=== PATIENT | female | born 1940 | race Caucasian/White ===

== ENCOUNTER → 2018-02-19 | Outpatient (CLI) | payer OTHER ==
[~2018-02-19] MED LIST: 8 HOUR650 MG PO; ADULT LOW DOSE81 MG PO; ASPIRIN EC81 M1 PO; ASPIRIN325 PO; B 12; BENADRYL25 MG PO; CALCIUM; CO Q-10100 MG PO; COLACE100 MG PO; COZAAR 25 MG TA25 MG PO; CRESTOR10 MG PO; FISHOIL; KRILL OIL500 MG PO; MIRALAX17 GM PO; MYSOLINE50 MG PO; PLAVIX 75 MG TA75 M1 PO; VITAMIN B-12100 MC1 PO
[2018-02-19 10:27] LABS: CREATININE 0.7 mg/dL (0.6-1.3)
== END ==
LOC: M.CT 09:56 → M.LAB 10:30 → M.CT 11:30
PROVIDERS: Surgery
DX: I65.23 Occlusion and stenosis of bilateral carotid arteries (principal); I10 Essential (primary) hypertension; E78.00 Pure hypercholesterolemia, unspecified; Z72.89 Other problems related to lifestyle

== ENCOUNTER → 2019-04-16 | Outpatient (CLI) | payer OTHER ==
[~2019-04-16] MED LIST changes: +ASPIR 8181 M1 PO; +COQ-10100 MG PO; +CRESTOR20 MG PO; +DITROPAN XL10 M1 PO; +FISH OIL 1,2001 EAC3 PO; +MAGNESIUM500 MG PO; +NORVASC5 M1 PO; +OMEPRAZOLE 20 M20 M1 PO; +SUPER B COMPLE1 EAC2 PO; +VITAMIN B-12250 MCG PO; +VITAMIN D31000 UNIT PO
--- NOTE | 2019-04-16 17:38 | CARDNUC ---
[place] [address] CARDIAC NUCLEAR IMAGING REPORT Name: GAURAV CHAMPAGNE Room: [facility]#: [id number] Admission: 04/16/19 Attend Phys: Zia Munroe, Discharge: Date of : 36 Date of Service: 04/16/19 1737 Report #: [id number] THIS REPORT FOR: //name// APPROVED REPORT Imaging Protocol: Rest Tc-99m/Stress Tc-99m 1 day Study performed: 04/16/2019 07:45:00 Indication: Pre-Operative CV evaluation, Bilateral Carotid Stenosis. Patient Location: Out-Patient Stress Tech: Mckenzie Tinajero Stress Nurse: Eun Hankins RN NM Tech:ALEXANDRA Belle Ht: 5 ft 2 in Wt: 158 lbs BSA: 1.73 m2 BMI: 28.89 Medical History Medical History: Carotid artery disease, Former Smoker, HTN, Hyperlipidemia, Stroke/TIA, Systolic Murmur. Medications: Amlodipine, ASA 81 Mg, Rosuvastatin. Allergies: Statins, Clopidogrel, Solifenacin, Sulfa, Warfarin. Cardiac Risk Factors: Age, HTN, Hyperlipidemia, Past Smoker, Systolic Murmur, Bilateral Carotid Stenosis. Previous Cardiac Procedures: None Pretest Chest Pain Characteristics: No chest pain Exercise History: Indeterminate Physical Disabilities: Bilateral Carotid Stenosis, HX TIA, Systolic Murmur. Meds Held (24 hrs): None Resting Data Rest SPECT myocardial perfusion imaging was performed in supine position 30 minutes following the intravenous injection of 11.7 mCi of Tc-99m Sestamibi. Time of rest injection: 804 Date: 04/16/2019 The images were gated to evaluate regional wall motion and calculate left ventricular ejection fraction. Administration Route: IV Administration Site: Right AC Pharmacologic Stress Pharmacologic stress test was performed by injecting Regadenoson 0.4 [place] [address] CARDIAC NUCLEAR IMAGING REPORT Name: GAURAV CHAMPAGNE [id number] Admission: 04/16/19 Attend Phys: Zia Munroe, Discharge: Date of : 38 Date of Service: 04/16/19 1737 Report #: [id number] mg IV push over 10-15 seconds immediately followed by the intravenous injection of 36.0 mCi of Tc-99m Sestamibi. Time of stress injection: 999 Date: 04/16/2019 Administration Route: IV Administration Site: Right AC Gated Stress SPECT was performed 40 minutes after stress injection. The images were gated to evaluate regional wall motion and calculate left ventricular ejection fraction. Prone imaging was performed. Stress Test Details Stress Test: Pharmacologic stress testing performed using 0.4 mg of regadenoson per 5 mL given IV over 10 seconds. Reason for pharmacologic stress test: Systolic murmur, Bilateral Carotid Stenosis, HX TIA.. HR Max Heart Rate (APMHR): 139 bpm Resting HR: 60 bpm Target HR (85% APMHR): 118 bpm Max HR Achieved: 110 bpm % of APMHR: 79 Recovery HR: 82 bpm BP Resting BP: 154/46 mmHg Max BP: 185/52 mmHg Recovery BP: 117/73 mmHg ECG Resting ECG: Sinus Rhythm, nonspecific ST-T abnormalities Stress ECG: Sinus Rhythm, nonspecific ST-T abnormalities ST Change: None Arrhythmia: None Recovery ECG: Sinus Rhythm, nonspecific ST-T abnormalities Recovery ST Change: None Recovery Arrhythmia: None Clinical Reason for Termination: Completed protocol Stress Symptoms: None Exercise duration: 00 min 00 sec Exercise capacity: 1.00 METs The patient tolerated the infusion without significant [place] [address] CARDIAC NUCLEAR IMAGING REPORT Name: GAURAV CHAMPAGNE Room: [facility]#: [id number] Admission: 04/16/19 Attend Phys: Zia Munroe, Discharge: Date of : 38 Date of Service: 04/16/19 1737 Report #: [id number] Nurse Comments An 79 year old female presented for laying Lexiscan Stress Test r/t Pre-op clearance for Bilateral Carotid Stenosis. Patient tolerated test well. Recovery unremarkable with PO caffeine, effective. Patient was escorted by staff to Nuclear Medicine for images. Patient was stable with no complaints at that time. Stress ECG Conclusion The baseline 12-lead EKG shows sinus rhythm with nonspecific ST segment depression diffusely. EKGs obtained during and post Lexiscan infusion show sinus rhythm without significant ST segment changes when compared to baseline. There were no stress-induced arrhythmias. Study Quality Study: Good Artifact: No artifact Study Data At rest, the left ventricular ejection fraction was 78%.. Post stress, the left ventricular ejection was 70%.. TID = 1.16. Perfusion Normal left ventricular perfusion. Wall Motion Normal left ventricular wall motion. Nuclear Conclusion ECG Findings: non-diagnostic Clinical Findings: negative for ischemia Nuclear Findings: negative for ischemia Exercise Capacity: not assessed Left Ventricular Function: normal Risk Study: low Myocardial perfusion images show no defect to suggest infarct or ischemia. Left ventricular systolic function is normal on gated studies. This is a low risk study. <Conclusion> The baseline 12-lead EKG shows sinus rhythm with nonspecific ST segment depression diffusely. EKGs obtained during [place] [address] CARDIAC NUCLEAR IMAGING REPORT Name: GAURAV CHAMPAGNE Room: [facility]#: [id number] Admission: 04/16/19 Attend Phys: Zia Munroe, Discharge: Date of : 36 Date of Service: 04/16/19 1737 Report #: [id number] infusion show sinus rhythm without significant ST segment changes when compared to baseline. There were no stress-induced arrhythmias. <ELECTRONICALLY SIGNED> By: Zia Munroe MD, FACC 04/16/19 173 36 36 Zia Munroe MD, FACC /INF
== END ==
LOC: M.NUC 04-04 12:57
DX: I65.23 Occlusion and stenosis of bilateral carotid arteries (principal); I25.10 Atherosclerotic heart disease of native coronary artery without angina pectoris; I10 Essential (primary) hypertension; E78.5 Hyperlipidemia, unspecified; Z87.891 Personal history of nicotine dependence; Z86.73 Personal history of transient ischemic attack (TIA), and cerebral infarction without residual deficits

== ENCOUNTER 2019-05-06 07:01 | Inpatient (IN) | payer OTHER ==
[~2019-05-06] VITALS: Ht 160 cm; Wt 71.7 kg
[2019-05-06] VITALS (19 sets, daily range): BP systolic 64–137; BP diastolic 38–97
--- NOTE | ~2019-05-06 | OP ---
[address] [address] OPERATIVE REPORT Name: GAURAV CHAMPAGNE Room: [address] IN M.R.#: [id number] Admission: 05/06/19 Attend Phys: Uli Byrd MD Discharge: Date of : 38 Report #: [id number] THIS REPORT FOR: //name// CC: Vidhya Bryd DATE OF SERVICE: 05/06/2019 PREOPERATIVE DIAGNOSIS: Severe left internal carotid artery stenosis. POSTOPERATIVE DIAGNOSIS: Severe left internal carotid artery stenosis. PROCEDURES: 1. Left carotid endarterectomy with patch angioplasty. 2. Intraoperative ultrasound with interpretation. FINDINGS ON ULTRASOUND: 1. Normal waveform velocity identified within the internal and common carotid arteries. 2. Patent flow identified in the external carotid artery on color flow imaging. 3. No flaps or defects identified on hopkins-scale imaging. SURGEON: Uli Byrd MD TELE TECH: Sherrie Méndez, surgical aide. COMPLICATIONS: None. ESTIMATED BLOOD LOSS: 200 mL. SPECIMENS: Includes plaque. ANESTHESIA: General. INDICATIONS FOR PROCEDURE: The patient is a very pleasant 79-year-old white female, who has severe left internal carotid artery stenosis. She also has innominate artery stenosis as well, but this is asymptomatic. We plan to proceed with left carotid endarterectomy today. We will shunt since she has stenosis on her inflow to her right carotid artery as well. Informed consent was obtained from the patient with risks including but not limited to bleeding, infection, need for further surgery, pain, , heart attack, stroke, cranial nerve injury. The patient understood these risks and was agreeable to proceed. DESCRIPTION OF PROCEDURE: The patient was taken to the operating room and placed in supine position. After adequate general anesthesia was initiated, timeout was performed. The patient's left neck [place] [address] OPERATIVE REPORT Name: MAHIGAURAV Room: [address] IN [facility].#: [id number] Admission: 05/06/19 Attend Phys: Uli Byrd MD Discharge: Date of : 38 Report #: [id number] draped in usual sterile fashion. The patient received appropriate preoperative antibiotics. The patient was systemically heparinized throughout the critical portion of procedure. I created a transverse incision in the patient's left neck. Sharp and blunt dissections were carried down along the anterior border of sternocleidomastoid muscle. I divided the facial vein. I entered the carotid sheath. Carotid bifurcation was very high. Her plaque extended almost all the way up to the skull base. I carefully dissected out the carotid artery, avoiding the cranial nerves. I controlled the common carotid artery as well as the branches of the internal and external carotid artery. I created a longitudinal arteriotomy from the common carotid artery onto the internal carotid artery. I placed a 12 shunt. There was quite a bit of backbleeding around the shunt. For this reason, I exchanged out for 14 shunt. There was still some backbleeding around the shunt. I placed a shunt clamp. For this reason, now I controlled the flow. I performed endarterectomy in standard fashion using a Kake elevator and a pair of pickups. I performed eversion endarterectomy of the external carotid artery. I got a feathered edge leading into the internal carotid artery. I used a bovine pericardial patch and a running 6-0 Prolene suture to close my arteriotomy. Upon completion of the repair, there was adequate hemostasis and excellent blood flow into the internal carotid artery. I performed intraoperative ultrasound with findings noted above. I irrigated with antibiotic saline. I controlled bleeding as needed with electrocautery, ties, clips and [place]. We closed the wound in multiple layers using 2-0 Vicryl, 3-0 Vicryl and Monocryl for the skin. Incision was dressed with Dermabond. The patient tolerated the procedure well and was taken alert and awake to recovery room in good condition. All needle and instrument counts were correct at the end of the case. By: 1350 [id number] Byrd MD /hilton
[2019-05-06 11:26] LABS: ABSOLUTE BASOPHILS 0.1 thou/uL (0.0-0.2); ABSOLUTE EOSINOPHILS 0.4 thou/uL (0.0-0.7); ABSOLUTE LYMPHOCYTES 1.3 thou/uL (0.8-5.3); ABSOLUTE MONOCYTES 0.7 thou/uL (0.0-1.2); ABSOLUTE NEUTROPHILS 5.7 thou/uL (1.6-8.1); BASOPHILS 1.2 %; EOSINOPHILS 5.3 %; HEMATOCRIT 36.9 % (37.0-47.0); HEMOGLOBIN 12.7 gm/dL (12.0-15.0); LYMPHOCYTES 16.1 %; MCH 30.5 pg (26.0-34.0); MCHC 34.3 g/dL (28.0-37.0); MONOCYTES 8.2 %; NUCLEATED RBCS 0 /100WBC; PLATELET COUNT* 382 thou/uL (150-400); POLYS 69.2 %; RBC 4.15 mil/uL (4.20-5.00); RDW-CV 13.1 % (10.5-14.5); WBC 8.2 thou/uL (4.0-11.0)
[2019-05-06 11:32] LABS: CALCIUM 8.8 mg/dL (8.5-10.1); CREATININE 0.8 mg/dL (0.6-1.3); POTASSIUM 4.2 mmol/L (3.5-5.1)
[2019-05-07] VITALS (14 sets, daily range): BP systolic 90–138; BP diastolic 43–61
[2019-05-07 04:31] LABS: HEMATOCRIT 30.4 % (37.0-47.0); MCH 30.1 pg (26.0-34.0); MCHC 33.8 g/dL (28.0-37.0); MCV 89.2 fL (80.0-100.0); MPV 6.9 fl. (7.2-11.1); RBC 3.41 mil/uL (4.20-5.00); WBC 19.2 thou/uL (4.0-11.0)
[2019-05-07 04:43] LABS: CALCIUM 7.7 mg/dL (8.5-10.1); CREATININE 0.7 mg/dL (0.6-1.3); POTASSIUM 4.7 mmol/L (3.5-5.1)
[2019-05-07 04:51] LABS: HEMOGLOBIN 10.3 gm/dL (12.0-15.0)
[2019-05-07 10:17] LABS: URINE BILIRUBIN NEGATIVE (Negative); URINE BLOOD NEGATIVE (Negative); URINE CLARITY CLEAR; URINE COLOR YELLOW; URINE GLUCOSE-RANDOM NEGATIVE (Negative); URINE KETONES NEGATIVE (Negative); URINE LEUKOCYTES-REFLEX 1+ (Negative); URINE NITRITE-REFLEX POSITIVE (Negative); URINE PROTEIN NEGATIVE (Negative); URINE SPECIFIC GRAVITY 1.015 (1.005-1.030); URINE UROBILINOGEN 0.2 E.U./dl (0.2-1.0)
[2019-05-07 10:24] LABS: SQUAMOUS 0-3 Few /LPF (0-3); URINE RBC 0-2 Rare /HPF (0-2); URINE WBC-REFLEX 6-15 Few /HPF (0-5)
[2019-05-07 10:25] LABS: BACTERIA-REFLEX 1-9 Few /HPF (None Seen); CASTS None Seen /LPF (None Seen); CRYSTALS None Seen /LPF (None Seen); MUCUS None Seen strn/LPF (None Seen)
[2019-05-07] MEDS ORDERED: MACROBID 100 M100 MG PO (12:14)
[2019-05-07] MEDS ORDERED: NORCO 5-325 TA1 EAC1 PO (12:17)
--- NOTE | 2019-05-08 17:06 | PATH ---
[facility] [address] [place] [address] PATHOLOGY RPT PROCEDURE Name: GROVER BEAN Room: [address] IN M.R.#: [id number] Admission: 05/06/19 Date of : 38 Discharge: 05/07/19 Report #: [id number] Path Case #: [id number] LCA Accession Number: [id number] . 01 Material submitted: . carotid body - LEFT CAROTID PLAQUE. Modifiers: left . 01 Clinical history: . Left carotid stenosis . 02 Diagnosis: Left carotid plaque: - Fibrointimal atherosclerotic plaque with prominent calcification. (SAM:gigi; 05/08/2019) QMS 05/08/2019 1243 Local . 02 Electronically signed: . Stephen Little MD, Pathologist NPI- [id number] . 01 Gross description: . The specimen is received in formalin, labeled "Grover Bean, left carotid plaque". Received are two segments of moderately calcified plaque measuring 2.1 x 1.8 x 0.5 cm in aggregate dimensions. The specimen is submitted representatively in cassette A1, following light decalcification. (CAA; 05/07/2019) QAC/QA 05/07/2019 0920 Local . 02 Pathologist provided ICD-10: I65.22 . 02 CPT . 553371, 475156 Specimen Comment: A courtesy copy of this report has been sent to [phone] Specimen Comment: [id number] Specimen Comment: Report sent to / DR BOSE Performed at: [address], [place], [place] [id number] MD Juanito Kramer MD Phone: [phone] Performed at: 02 [facility] [address] [place], [place], [place] [id number] MD Stephen Little MD Phone: [phone]
== END 2019-05-07 13:00 | disposition home or self-care (01) | DRG 38 ==
LOC: M.PRE 07:01 → M.TBA 10:01 → M.ICU 10:01 → M.PRE 10:27 → M.ICU 15:11 → M.PRE 17:03 → M.ICU 05-07 13:00
PROVIDERS: Physician Assistant Surgical; ADMIT Surgery Vascular Surgery
PROC: 03UL0KZ Supplement Left Internal Carotid Artery with Nonautologous Tissue Substitute, Open Approach (ICD-10-PCS; principal; 2019-05-06)
PROC: 03CL0ZZ Extirpation of Matter from Left Internal Carotid Artery, Open Approach (ICD-10-PCS; principal; 2019-05-06)
DX: I65.22 Occlusion and stenosis of left carotid artery (principal); J98.11 Atelectasis; E78.00 Pure hypercholesterolemia, unspecified; I10 Essential (primary) hypertension; K21.9 Gastro-esophageal reflux disease without esophagitis; M81.0 Age-related osteoporosis without current pathological fracture; I73.9 Peripheral vascular disease, unspecified; J44.9 Chronic obstructive pulmonary disease, unspecified; D72.829 Elevated white blood cell count, unspecified; Z86.73 Personal history of transient ischemic attack (TIA), and cerebral infarction without residual deficits; Z86.010 Personal history of colon polyps; Z87.891 Personal history of nicotine dependence; Z79.82 Long term (current) use of aspirin; Z88.2 Allergy status to sulfonamides; Z88.8 Allergy status to other drugs, medicaments and biological substances; Z79.899 Other long term (current) drug therapy

== ENCOUNTER 2020-04-21 09:39 | Inpatient (IN) | payer OTHER ==
[~2020-04-21] VITALS: Ht 157.5 cm; Wt 66.5 kg
[~2020-04-21 09:39] MED LIST changes: +MACROBID 100 M100 MG PO; +NORCO 5-325 TA1 EAC1 PO
[2020-04-21 09:46] VITALS: BP 92/59
[2020-04-21 10:19] LABS: ABSOLUTE BASOPHILS 0.1 thou/uL (0.0-0.2); ABSOLUTE EOSINOPHILS 0.6 thou/uL (0.0-0.7); ABSOLUTE LYMPHOCYTES 1.2 thou/uL (0.8-5.3); ABSOLUTE MONOCYTES 1.6 thou/uL (0.0-1.2); BASOPHILS 1.1 %; EOSINOPHILS 4.6 %; HEMOGLOBIN 12.5 gm/dL (12.0-15.0); LYMPHOCYTES 9.8 %; MCH 29.2 pg (26.0-34.0); MCV 88.6 fL (80.0-100.0); MONOCYTES 12.6 %; MPV 7.3 fl. (7.2-11.1); NUCLEATED RBCS 0 /100WBC; PLATELET COUNT* 439 thou/uL (150-400); POLYS 71.9 %; RBC 4.29 mil/uL (4.20-5.00); RDW-CV 13.5 % (10.5-14.5); WBC 12.6 thou/uL (4.0-11.0)
[2020-04-21 10:44] LABS: APTT 21.4 Seconds (25.0-31.3); INR 1.1; PROTIME 11.4 Seconds (9.20-11.50)
[2020-04-21 10:51] LABS: ALBUMIN 2.6 g/dL (3.4-5.0); CREATININE 1.6 mg/dL (0.6-1.3); POTASSIUM 3.6 mmol/L (3.5-5.1); TOTAL BILIRUBIN 0.4 mg/dL (<0.1-1.0); TOTAL PROTEIN 7.2 g/dL (6.4-8.2)
[2020-04-21 11:07] LABS: CALCIUM 14.8 mg/dL (8.5-10.1)
[2020-04-21 12:44] LABS: CREATININE 1.6 mg/dL (0.6-1.3); PHOSPHORUS* 4.1 mg/dL (2.5-4.9)
[2020-04-21 12:48] LABS: CALCIUM 15.7 mg/dL (8.5-10.1)
[2020-04-21 14:39] LABS: URINE BILIRUBIN NEGATIVE (Negative); URINE BLOOD TRACE (Negative); URINE CLARITY CLEAR; URINE COLOR YELLOW; URINE GLUCOSE-RANDOM NEGATIVE (Negative); URINE KETONES NEGATIVE (Negative); URINE LEUKOCYTES-REFLEX 1+ (Negative); URINE NITRITE-REFLEX NEGATIVE (Negative); URINE PROTEIN NEGATIVE (Negative); URINE SPECIFIC GRAVITY 1.015 (1.005-1.030); URINE UROBILINOGEN 0.2 E.U./dl (0.2-1.0)
[2020-04-21 14:47] LABS: URINE POTASSIUM-RANDOM 26.8 mmol/L
[2020-04-21 14:49] LABS: CASTS None Seen /LPF (None Seen); CRYSTALS None Seen /LPF (None Seen); SQUAMOUS 0-3 Few /LPF (0-3); URINE RBC 0-2 Rare /HPF (0-2); URINE WBC-REFLEX 6-15 Few /HPF (0-5)
[2020-04-21 15:39] VITALS: BP 111/48
--- NOTE | 2020-04-21 16:11 | EKG ---
[place] [address] ELECTROCARDIOGRAM REPORT Name: CHAMPAGNEGAURAV Room: [place] [address] ADM IN .R.#: [id number] Admission: 04/21/20 Attend Phys: Jose F Li, Discharge: Date of : 38 Date of Service: 04/21/20 1006 Report #: [id number] THIS REPORT FOR: //name// [facility] ED Test Date: 2020-04-21 Test Time: 10:06:03 Pat Name: AGURAV CHAMPAGNE Department: Room: [facility] Gender: F Clinical Trial Specialist: TDS : 1940 Requested By: Dmitriy Pearl Order Number: [id number] MD: Jerad Hicks Measurements Intervals [place] Rate: 87 P: -3 CT: 167 QRS: -19 QRSD: 83 T: 26 QT: 358 QTc: 431 Interpretive Statements Sinus rhythm LVH by voltage Inferior infarct, old possible Anterior Q waves, possibly due to LVH or old anteroseptal scar Compared to ECG 08/02/2013 13:17:58 Left ventricular hypertrophy now present Q waves now present Myocardial infarct finding still present Electronically Signed On 04-21-2020 16:11:19 PRINCIPAL LIBRARIAN by Jerad Hicks [email or web address] <ELECTRONICALLY SIGNED> By: Jerad Hicks MD, [facility] 04/21/20 1611 05 05 Jerad Hicks MD, [facility] /EPI
--- NOTE | 2020-04-21 16:13 | EKG ---
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: CCD : 1940 Requested By: Dmitriy Pearl Order Number: [id number] MD: Jerad Hicks Measurements Intervals [place] Rate: 140 P: 202 [place]: 83 QRS: -11 QRSD: 80 T: 21 QT: 325 QTc: 496 Interpretive Statements Sinus rhythm with a burst of supraventricular tachycardia Inferior infarct, old possible Compared to ECG 04/21/2020 10:06:03 Run of SVT is noted Left ventricular hypertrophy no longer present Electronically Signed On 04-21-2020 16:12:58 TRANSITIONAL NURSE by Jerad Hicks [email or web address] <ELECTRONICALLY SIGNED> By: Jerad Hicks MD, FACC 04/21/20 1612 1141 1141 Jerad Hicks MD, FACC /EPI
[2020-04-21 18:56] VITALS: BP 110/75
[2020-04-21 20:00] VITALS: BP 108/70
[2020-04-22 00:34] VITALS: BP 121/50
[2020-04-22 04:22] VITALS: BP 122/57
[2020-04-22 05:44] LABS: CREATININE 1.5 mg/dL (0.6-1.3); MAGNESIUM 1.7 mg/dL (1.8-2.4); POTASSIUM 3.3 mmol/L (3.5-5.1)
[2020-04-22 05:45] LABS: CALCIUM 11.8 mg/dL (8.5-10.1)
[2020-04-22 07:08] LABS: HEPATITIS B SURFACE AG Negative (Negative)
[2020-04-22 08:00] VITALS: BP 98/71
[2020-04-22 12:00] VITALS: BP 116/66
[2020-04-22 17:27] VITALS: BP 106/68
[2020-04-22 20:56] VITALS: BP 123/60
[2020-04-23] VITALS: BP 124/72
[2020-04-23 04:00] VITALS: BP 106/62
[2020-04-23 04:51] LABS: ALBUMIN 2.2 g/dL (3.4-5.0); CREATININE 1.6 mg/dL (0.6-1.3); MAGNESIUM 1.8 mg/dL (1.8-2.4); POTASSIUM 3.7 mmol/L (3.5-5.1); TOTAL BILIRUBIN 0.4 mg/dL (<0.1-1.0); TOTAL PROTEIN 6.3 g/dL (6.4-8.2)
[2020-04-23 05:37] LABS: CALCIUM 12.9 mg/dL (8.5-10.1)
[2020-04-23 08:00] VITALS: BP 110/71
[2020-04-23 11:53] VITALS: BP 101/56
[2020-04-23 13:32] LABS: GLOBULIN TOTAL 3.3 g/dL (2.2-3.9); M-SPIKE Not Observed g/dL (Not Observed)
[2020-04-23 13:34] LABS: ALBUMIN 2.3 g/dL (3.4-5.0); CREATININE 1.4 mg/dL (0.6-1.3); PHOSPHORUS* 2.8 mg/dL (2.5-4.9); POTASSIUM 3.5 mmol/L (3.5-5.1)
[2020-04-23 15:22] LABS: CREATININE 1.6 mg/dL (0.6-1.3)
[2020-04-23 15:26] LABS: CALCIUM 12.4 mg/dL (8.5-10.1)
[2020-04-23 16:27] VITALS: BP 90/50
[2020-04-23 20:10] VITALS: BP 129/75
[2020-04-24] VITALS (7 sets, daily range): BP systolic 94–129; BP diastolic 50–69
[2020-04-24 04:40] LABS: ABSOLUTE BASOPHILS 0.1 thou/uL (0.0-0.2); ABSOLUTE EOSINOPHILS 0.8 thou/uL (0.0-0.7); ABSOLUTE LYMPHOCYTES 1.2 thou/uL (0.8-5.3); ABSOLUTE MONOCYTES 1.4 thou/uL (0.0-1.2); ABSOLUTE NEUTROPHILS 9.1 thou/uL (1.6-8.1); BASOPHILS 1.2 %; EOSINOPHILS 6.5 %; HEMATOCRIT 34.2 % (37.0-47.0); HEMOGLOBIN 11.4 gm/dL (12.0-15.0); LYMPHOCYTES 9.5 %; MCH 29.3 pg (26.0-34.0); MCHC 33.2 g/dL (28.0-37.0); MCV 88.2 fL (80.0-100.0); MPV 7.2 fl. (7.2-11.1); NUCLEATED RBCS 0 /100WBC; PLATELET COUNT* 413 thou/uL (150-400); POLYS 71.8 %; RBC 3.87 mil/uL (4.20-5.00); RDW-CV 13.7 % (10.5-14.5); WBC 12.6 thou/uL (4.0-11.0)
[2020-04-24 05:00] LABS: ALBUMIN 2.3 g/dL (3.4-5.0); CALCIUM 11.7 mg/dL (8.5-10.1); CREATININE 1.6 mg/dL (0.6-1.3); MAGNESIUM 1.8 mg/dL (1.8-2.4); POTASSIUM 3.6 mmol/L (3.5-5.1); TOTAL BILIRUBIN 0.4 mg/dL (<0.1-1.0); TOTAL PROTEIN 6.1 g/dL (6.4-8.2)
--- NOTE | 2020-04-24 05:15 | CON ---
[address] [address] CONSULTATION Name: GAURAV CHAMPAGNE Room: [address] IN M.R.#: [id number] Admission: 04/21/20 Attend Phys: Jose F Li MD Discharge: Date of : 38 Report #: [id number] THIS REPORT FOR: //name// cc: Vidhya Mejía MD, Lin W. MD ~ DATE OF SERVICE: 04/23/2020 NEPHROLOGY CONSULTATION CONSULTING PHYSICIAN: Dr. Li. REASON FOR NEPHROLOGY CONSULTATION: Hypercalcemia and acute kidney injury. REASON FOR ADMISSION: Confusion. HISTORY OF PRESENT ILLNESS: This is an 80-year-old female who was admitted with weakness and a fall at home and she was found to be in SVT when she was in the ER. She also had a recent history of COVID infection in February. Her calcium was found to be 14.8 with a creatinine of 1.6. The creatinine was 0.7 in 04/2019. She does not have any history of hypercalcemia in the past as well. The patient states that she was taking Tums, but just to 1 tablet a day because of increased GERD. She was also taking NSAIDs, Aleve PM every night. There is no history of any kidney stones. Her calcium level did come down slightly, but then went up again today. Her creatinine has been running 1.5-1.6 here in the hospital. She is just very weak. Her blood pressure was also low when she came in. She has been nonoliguric. REVIEW OF SYSTEMS: As mentioned in history of present illness, otherwise 10-point review of systems are negative. ALLERGIES: SIMVASTATIN, SULFA, WARFARIN, ATORVASTATIN, CLOPIDOGREL, AND CERIVASTATIN. PAST MEDICAL AND SURGICAL HISTORY: Includes dyslipidemia, hypertension, bilateral carotid artery stenosis, subclavian arterial stenosis, TIA, cerebral infarcts, cardiac murmur, acid reflux, colon polyps, essential tremor, osteoporosis, retinal hemorrhage, urinary frequency and tonsillectomy. FAMILY HISTORY: Reviewed and noncontributory in this 80-year-old female. SOCIAL HISTORY: She lives at home. Former smoker, does not use alcohol, does not use recreational drugs. HOME MEDICATIONS: Include rosuvastatin, ubidecarenone, amlodipine, vitamin B complex, fish oil, cholecalciferol, cyanocobalamin, hydrocodone, acetaminophen, aspirin, magnesium oxide, omeprazole, oxybutynin, [place] [address] CONSULTATION Name: GAURAV CHAMPAGNE Room: [address]#: [id number] Admission: 04/21/20 Attend Phys: Jose F Li MD Discharge: Date of : 38 Report #: [id number] PHYSICAL EXAMINATION: VITAL SIGNS: Blood pressure is 118/69, temperature 36.6, pulse rate is 101, respiratory rate is 18, pulse ox 92% on 2 liters of oxygen via nasal cannula. GENERAL: She is awake, alert, oriented x 3. HEAD AND EYES: Atraumatic, normocephalic. EARS, NOSE, AND THROAT: Normal ears and nose. Mucous membranes are dry. CHEST: Bilaterally clear to auscultation. No crackles or wheezing. CARDIOVASCULAR: S1, S2 normal. No murmurs. ABDOMEN: Soft, nondistended, nontender. Bowel sounds are present. LOWER EXTREMITIES: There is no lower extremity edema. NEUROLOGICAL FUNCTION: Grossly internal. PSYCHIATRIC: Mood and affect seems to be normal. LABORATORY DATA: Sodium 143, potassium 3.7, creatinine was 1.6 and calcium was 12.9, which is up from 11.8, which was yesterday and a calcium was 14.8 when she first came in, 25-hydroxy vitamin D was 56. PTH was 4 and other labs are reviewed. IMAGING: Renal ultrasound, abdominal ultrasound, head CT and chest x-ray were reviewed. ASSESSMENT: 1. Acute kidney injury in the setting of hypercalcemia, NSAID use, intravascular volume depletion, baseline creatinine around 0.7 in 04/2019 and creatinine has been running 1.5-1.6 over here in the hospital. UA showed just trace blood, but no significant rbc's and 6-15 wbc's per high power field. Renal ultrasound was unremarkable. 2. Hypercalcemia, etiology is unclear. It is not PTH driven because PTH is 4, 25-hydroxy vitamin D is 56, serum protein electrophoresis is normal. She was taking calcium supplements at home, but not a whole lot. 3. Hypotension, which also contributed to acute kidney injury, which is better now. 4. Volume depletion. 5. Supraventricular tachycardia. The patient was treated with Cardizem initially and now on p.o. amiodarone as per Cardiology. 6. Transaminitis, which is improving. 7. Normal CPK. 8. Peripheral vascular disease as per primary team. 9. Gastroesophageal reflux disease. PLAN: 1. We will change her IV fluids to half normal saline at 150 mL an hour and we will give a dose of Zometa 4 mg. 2. I tried to order PTH related peptide, was unable to do so, please try to see if it can be ordered, one 25-hydroxy vitamin D and serum free light chain ratio [address] [place] [address] CONSULTATION Name: GAURAV CHAMPAGNE Room: [address] IN .#: [id number] Admission: 04/21/20 Attend Phys: Jose F Li MD Discharge: Date of : 38 Report #: [id number] also ordered. 3. Also, check a bladder scan to make sure she is not retaining any urine. 4. Hypercalcemia can be associated with malignancy in her case because it is not PTH driven and it does not look like she was taking Tums or calcium supplements. I thought that she was taking some vitamin D at home. 5. I will recommend Hematology/Oncology consultation and discussed with the patient's nurse and discussed with the patient as well and we will continue to follow with you. Creatinine so far is stable. Thank you for this consultation. <ELECTRONICALLY SIGNED> By: Hellen Freedman MD 04/24/20 0515 0851 [id number] Freedman MD /nt
--- NOTE | 2020-04-24 13:59 | 2DMMODE ---
[place] [address] 2 D/M-MODE ECHOCARDIOGRAM Name: GAURAV CHAMPAGNE Room: [address] IN .R.#: [id number] Admission: 04/21/20 Attend Phys: Jose F Li, Discharge: Date of : 38 Date of Service: 04/24/20 1359 Report #: [id number] THIS REPORT FOR: cc: Vidhya Mejía MD, Lin W. MD Holkins, John M. MD [facility] ~ APPROVED REPORT Study performed: 04/24/2020 11:07:48 EXAM: Comprehensive 2D, Doppler, and color-flow Echocardiogram Patient Location: In-Patient Room #: [facility] Status: routine BSA: 1.72 HR: 73 bpm BP: 100/50 mmHg Rhythm: NSR Other Information Study Quality: Good Indications Tachycardia 2D Dimensions IVSd: 8.96 (7-11mm) LVOT Diam: 19.43 (18-24mm) LVDd: 41.99 mm PWd: 8.42 (7-11mm) Ascending Ao: 31.46 (22-36mm) LVDs: 26.80 (25-40mm) Aortic Root: 24.88 mm Volumes Left Atrial Volume (Systole) LA ESV Index: 22.80 mL/m2 Aortic Valve AoV Peak Pelon.: 1.55 m/s AO Peak Gr.: 9.64 mmHg LVOT Max P.25 mmHg AO Mean Gr.: 5.23 mmHg LVOT Mean P.62 mmHg LVOT Max V: 0.90 m/s AO V2 VTI: 34.28 cm LVOT Mean V: 0.59 m/s KINA (VTI): 1.85 cm2 LVOT V1 VTI: 21.35 [place] [address] 2 D/M-MODE ECHOCARDIOGRAM Name: GAURAV CHAMPAGNE Room: [address] IN M.R.#: [id number] Admission: 04/21/20 Attend Phys: Jose F Li, Discharge: Date of : 38 Date of Service: 04/24/20 1359 Report #: [id number] Mitral Valve E/A Ratio: 0.76 MV Decel. Time: 190.62 ms MV E Max Pelon.: 0.91 m/s MV PHT: 55.28 ms MVA (PHT): 3.98 cm2 TDI E/Lateral E': 11.38 E/Medial E': 13.00 Medial E' Pelon.: 0.07 m/s Lateral E' Pelon.: 0.08 m/s Pulmonary Valve PV Peak Pelon.: 0.88 m/s PV Peak Gr.: 3.08 mmHg Tricuspid Valve RAP Estimate: 5.00 mmHg TR Peak Gr.: 29.54 mmHg RVSP: 34.00 mmHg PA Pressure: 34.00 mmHg Left Ventricle The left ventricle is normal size. There is normal LV segmental wall motion. There is normal left ventricular wall thickness. Left ventricular systolic function is normal. The left ventricular ejection fraction is within the normal range. LVEF is 55-60%. Grade I - abnormal relaxation pattern. Right Ventricle The right ventricle is normal size. The right ventricular systolic function is normal. Atria The left atrium size is normal. The right atrium size is normal. Aortic Valve Mild aortic valve sclerosis. No aortic regurgitation is present. No hemodynamically significant valvular aortic stenosis. Mitral Valve Mild mitral annular calcification. Mild mitral regurgitation. No evidence of mitral valve stenosis. Tricuspid Valve The tricuspid valve is normal in structure. Mild tricuspid regurgitation. [place] [address] 2 D/M-MODE ECHOCARDIOGRAM Name: GAURAV CHAMPAGNE Room: [address] IN [facility]#: [id number] Admission: 04/21/20 Attend Phys: Jose F Li, Discharge: Date of : 36 Date of Service: 04/24/20 1359 Report #: [id number] Pulmonic Valve The pulmonary valve is normal in structure. There is no pulmonic valvular regurgitation. Great Vessels The aortic root is normal in size. IVC is normal in size and collapses >50% with inspiration. Pericardium There is no pericardial effusion. <Conclusion> The left ventricle is normal size. There is normal left ventricular wall thickness. Left ventricular systolic function is normal. The left ventricular ejection fraction is within the normal range. LVEF is 55-60%. Grade I - abnormal relaxation pattern. The right ventricle is normal size. The left atrium size is normal. Mild aortic valve sclerosis. No aortic regurgitation is present. No hemodynamically significant valvular aortic stenosis. Mild mitral annular calcification. Mild mitral regurgitation. No evidence of mitral valve stenosis. The tricuspid valve is normal in structure. Mild tricuspid regurgitation. Mild pulmonary hypertension. IVC is normal in size and collapses >50% with inspiration. There is no pericardial effusion. There is normal LV segmental wall motion. <ELECTRONICALLY SIGNED> By: Jerad Hicks MD, FACC 04/24/20 1359 1359 1359 Jerad Hicks MD, FACC /INF
[2020-04-25] VITALS: BP 101/58; BP 88/49
[2020-04-25 04:00] VITALS: BP 93/44
[2020-04-25 04:26] LABS: ABSOLUTE BASOPHILS 0.1 thou/uL (0.0-0.2); ABSOLUTE EOSINOPHILS 0.7 thou/uL (0.0-0.7); ABSOLUTE LYMPHOCYTES 0.9 thou/uL (0.8-5.3); ABSOLUTE MONOCYTES 1.3 thou/uL (0.0-1.2); BASOPHILS 1.1 %; EOSINOPHILS 6.4 %; HEMATOCRIT 32.9 % (37.0-47.0); HEMOGLOBIN 10.9 gm/dL (12.0-15.0); LYMPHOCYTES 8.5 %; MCH 29.2 pg (26.0-34.0); MCHC 33.3 g/dL (28.0-37.0); MCV 87.7 fL (80.0-100.0); MONOCYTES 11.5 %; MPV 7.2 fl. (7.2-11.1); NUCLEATED RBCS 0 /100WBC; PLATELET COUNT* 398 thou/uL (150-400); POLYS 72.5 %; RBC 3.75 mil/uL (4.20-5.00); RDW-CV 13.7 % (10.5-14.5)
[2020-04-25 04:51] LABS: CALCIUM 10.5 mg/dL (8.5-10.1); CREATININE 1.4 mg/dL (0.6-1.3); POTASSIUM 3.1 mmol/L (3.5-5.1)
[2020-04-25 08:00] VITALS: BP 97/53
[2020-04-25] MEDS ORDERED: PACERONE 200 M200 M1 PO (08:20)
[2020-04-25 12:00] VITALS: BP 119/70
[2020-04-25 16:00] VITALS: BP 111/58
[2020-04-25 20:00] VITALS: BP 120/45
[2020-04-26 00:09] VITALS: BP 100/85
[2020-04-26 04:00] VITALS: BP 103/77
[2020-04-26 08:00] VITALS: BP 127/57
[2020-04-26 09:51] LABS: CALCIUM 10.1 mg/dL (8.5-10.1); CREATININE 1.4 mg/dL (0.6-1.3); POTASSIUM 3.3 mmol/L (3.5-5.1)
[2020-04-26 12:00] VITALS: BP 97/49
[2020-04-26 16:00] VITALS: BP 95/55
[2020-04-26 20:00] VITALS: BP 110/47
[2020-04-27] VITALS: BP 99/50
[2020-04-27 04:00] VITALS: BP 105/54
[2020-04-27 08:00] VITALS: BP 118/58
--- NOTE | 2020-04-27 09:01 | CON ---
[address] [address] CONSULTATION Name: GAURAV CHAMPAGNE Room: [address] ADM IN M.R.#: [id number] Admission: 04/21/20 Attend Phys: Jose F Li MD Discharge: Date of : 36 Report #: [id number] THIS REPORT FOR: //name// cc: Vidhya Mejía MD, Lin W. MD ~ DATE OF SERVICE: 04/21/2020 CARDIOLOGY CONSULT INDICATION: SVT. HISTORY OF PRESENT ILLNESS: This patient is a very pleasant 80-year-old white female with prior history of CVA/TIA and carotid disease, who was admitted to the hospital with generalized weakness and confusion. She had a fall at home where she states that she fell off of the toilet seat. She denies syncope. In the Emergency Room, she was found to have hypoglycemia and evidence of dehydration with an elevated creatinine. She also had hypercalcemia and elevated liver function studies. In the Emergency Room, she was noted to have intermittent supraventricular tachycardia on the monitor. The only symptom that she noted was fatigue. She denied any significant shortness of breath or chest pain. PAST MEDICAL HISTORY: 1. History of TIA/CVA. 2. Hyperlipidemia. 3. Hypertension. 4. History of left carotid endarterectomy. 5. Subclavian artery stenosis. 6. GERD. 7. Essential tremor. 8. Osteoporosis. 9. History of retinal hemorrhage. 10. Remote history of tonsillectomy. FAMILY HISTORY: Noncontributory. SOCIAL HISTORY: The patient is a former smoker. She quit remotely. She does not drink alcohol. CURRENT MEDICATIONS: Crestor 20 mg at bedtime, CoQ10 of 100 mg at bedtime, amlodipine 5 mg at bedtime, multivitamin 1 tablet daily, fish oil 1200 mg daily, vitamin D supplement 1000 units daily, vitamin B12 of 250 mcg daily, Somers 5/325 q. 6 hours p.r.n., aspirin 81 mg at bedtime, magnesium oxide 500 mg daily, omeprazole 20 mg daily, Ditropan XL 10 mg daily, primidone 50 mg daily. ALLERGIES: SIMVASTATIN, SULFAS, WARFARIN, ATORVASTATIN, CLOPIDOGREL, [place] [id number] CONSULTATION Name: GAURAV CHAMPAGNE Room: [address] IN [facility]#: [id number] Admission: 04/21/20 Attend Phys: Jose F Li MD Discharge: Date of : 36 Report #: [id number] CERIVASTATIN. REVIEW OF SYSTEMS: A 14-point review of systems as per HPI, otherwise unremarkable. PHYSICAL EXAMINATION: VITAL SIGNS: Blood pressure 124/47, pulse is in the 90s with occasional episodes of heart rates in the 120s consistent with an SVT. GENERAL: This is a thin elderly lady, in no distress. HEENT: Head is normocephalic, atraumatic. Extraocular muscles intact. Mucous membranes are moist. NECK: Shows no jugular venous distention. I do not appreciate bruit. CHEST: Reveals clear lung delgado. CARDIAC: Reveals an occasionally irregular rhythm without gallop. There is a soft grade 1-2/6 systolic ejection murmur. ABDOMEN: Reveals normal bowel sounds. The abdomen is soft and nontender. EXTREMITIES: Shows no edema. LABORATORY DATA: Reviewed. Sodium 141, potassium 3.6, chloride 102, bicarb 34, BUN 20, creatinine 1.6, serum glucose 108, calcium 15.7. Alkaline phosphatase 233, ALT 100. Albumin 2.6, total protein 7.2. Troponins less than 0.06. Coags within normal limits. White blood cell count 12.6; hemoglobin 12.5; platelet count 439,000. Chest x-ray: Mild atelectasis versus basilar infiltrates. No other abnormality noted. IMPRESSION AND RECOMMENDATIONS: 1. Supraventricular tachycardia. We will start diltiazem drip after a bolus. Echocardiogram ordered and pending. Cardiac enzymes unremarkable. 2. 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 Presently appears stable. 3. Hypertension. Continue home medications and follow clinically. 4. Hyperlipidemia. Continue current dose of Crestor. 5. Hypercalcemia, etiology not clear. The patient is being rehydrated at this time. 6. Renal failure with mild probable dehydration. Continue rehydration and repeat labs in a.m. <ELECTRONICALLY SIGNED> By: Zia Munroe MD, FACC 04/27/20900 22 40Micyenifer Munroe MD, FACC /nt
[2020-04-27 10:06] LABS: KAPPA FREE LIGHT CHAINS 75.2 mg/L (3.3-19.4); LAMBDA FREE LIGHT CHAINS 34.7 mg/L (5.7-26.3)
[2020-04-27 13:22] VITALS: BP 127/58
[2020-04-27 16:20] VITALS: BP 114/78
[2020-04-27 20:00] VITALS: BP 95/58
[2020-04-28] VITALS: BP 82/54
[2020-04-28 04:00] VITALS: BP 93/49
[2020-04-28 08:15] VITALS: BP 107/44
[2020-04-28 09:29] VITALS: BP 93/49
[2020-04-28 20:54] VITALS: BP 120/58
[2020-04-29 00:18] VITALS: BP 116/55
[2020-04-29 03:21] VITALS: BP 113/61
[2020-04-29 08:00] VITALS: BP 113/64
[2020-04-29 09:20] VITALS: BP 113/61
== END 2020-04-29 12:30 | disposition home health service (06) | DRG 682 ==
LOC: M.ERS 09:39 → M.2W 12:15 → M.TBA-ER 12:15 → M.2W 19:09
PROVIDERS: Family Medicine; Internal Medicine; ADMIT Internal Medicine; ATTEND Internal Medicine
DX: N17.0 Acute kidney failure with tubular necrosis (principal); G92 Toxic encephalopathy; J96.01 Acute respiratory failure with hypoxia; I47.1 Supraventricular tachycardia; E44.0 Moderate protein-calorie malnutrition; I08.0 Rheumatic disorders of both mitral and aortic valves; I27.20 Pulmonary hypertension, unspecified; E78.00 Pure hypercholesterolemia, unspecified; I10 Essential (primary) hypertension; K21.9 Gastro-esophageal reflux disease without esophagitis; E83.52 Hypercalcemia; I73.9 Peripheral vascular disease, unspecified; E78.5 Hyperlipidemia, unspecified; E86.0 Dehydration; E86.9 Volume depletion, unspecified; I95.9 Hypotension, unspecified; M81.0 Age-related osteoporosis without current pathological fracture; T45.2X5A Adverse effect of vitamins, initial encounter; Y92.89 Other specified places as the place of occurrence of the external cause; Z86.73 Personal history of transient ischemic attack (TIA), and cerebral infarction without residual deficits; Z86.010 Personal history of colon polyps; Z79.82 Long term (current) use of aspirin; Z79.899 Other long term (current) drug therapy; Z88.2 Allergy status to sulfonamides; Z88.8 Allergy status to other drugs, medicaments and biological substances; Z87.891 Personal history of nicotine dependence; Z86.19 Personal history of other infectious and parasitic diseases; Z09 Encounter for follow-up examination after completed treatment for conditions other than malignant neoplasm; Z68.26 Body mass index [BMI] 26.0-26.9, adult; Z20.828 Contact with and (suspected) exposure to other viral communicable diseases

== ENCOUNTER → 2020-05-15 | Outpatient (CLI) | payer OTHER ==
[~2020-05-15] MED LIST changes: +PACERONE 200 M200 M1 PO
== END ==
LOC: M.ULTRA 13:29
PROVIDERS: ATTEND Registered Nurse Diabetes Educator
DX: E07.9 Disorder of thyroid, unspecified (principal); E83.42 Hypomagnesemia

== ENCOUNTER → 2020-08-24 | Outpatient (CLI) | payer OTHER | LOC: M.RAD 14:11 | PROVIDERS: ATTEND Registered Nurse Diabetes Educator | DX: M81.0 Age-related osteoporosis without current pathological fracture (principal); Z78.0 Asymptomatic menopausal state ==

== ENCOUNTER 2021-04-30 14:20 | Emergency (ER) | payer OTHER ==
[~2021-04-30] VITALS: Ht 160 cm; Wt 63.0 kg
[2021-04-30] MEDS ORDERED: HYDROCODON-ACE1 EAC7 PO (17:33)
[2021-04-30 17:45] VITALS: BP 110/78
== END 2021-04-30 17:48 | disposition home or self-care (01) ==
LOC: M.ERS 14:20
DX: S52.611A Displaced fracture of right ulna styloid process, initial encounter for closed fracture (principal); E78.00 Pure hypercholesterolemia, unspecified; I10 Essential (primary) hypertension; K21.9 Gastro-esophageal reflux disease without esophagitis; Z90.89 Acquired absence of other organs; Z79.899 Other long term (current) drug therapy; Z87.891 Personal history of nicotine dependence; Z88.2 Allergy status to sulfonamides; Z88.8 Allergy status to other drugs, medicaments and biological substances; W01.0XXA Fall on same level from slipping, tripping and stumbling without subsequent striking against object, initial encounter; Y93.89 Activity, other specified; Y92.89 Other specified places as the place of occurrence of the external cause; Y99.8 Other external cause status

== ENCOUNTER 2021-05-02 12:48 | Emergency (ER) | payer OTHER ==
[~2021-05-02] VITALS: Ht 160 cm; Wt 63.0 kg
[~2021-05-02 12:48] MED LIST changes: +HYDROCODON-ACE1 EAC7 PO
[2021-05-02 15:46] VITALS: BP 132/72
== END 2021-05-02 15:47 | disposition home or self-care (01) ==
LOC: M.ERS 12:48
DX: M79.641 Pain in right hand (principal); M79.89 Other specified soft tissue disorders; I10 Essential (primary) hypertension; E78.00 Pure hypercholesterolemia, unspecified; K21.9 Gastro-esophageal reflux disease without esophagitis; M81.0 Age-related osteoporosis without current pathological fracture; Z86.73 Personal history of transient ischemic attack (TIA), and cerebral infarction without residual deficits; Z90.89 Acquired absence of other organs; Z79.899 Other long term (current) drug therapy; Z79.82 Long term (current) use of aspirin; Z88.8 Allergy status to other drugs, medicaments and biological substances; Z88.2 Allergy status to sulfonamides; Z87.891 Personal history of nicotine dependence